=== PATIENT | female | born 2000 | race Caucasian/White ===

== ENCOUNTER 2018-03-01 13:51 | Emergency (ER) | payer OTHER ==
[2018-03-01] MEDS ORDERED: LIDOCAINE 4%/MENTHOL 1% PATCH TD ONE (15:29)
[2018-03-01] MEDS ORDERED: DIAZEPAM 5 MG TAB PO ONE (15:29)
--- NOTE | 2018-03-01 15:43 | EDPHY ---
H & P Time Seen by Provider: 03/01/18 15:05 HPI/ROS: CLINICAL IMPRESSION: Rhomboid strain ASSESSMENT/PLAN: 17-year-old female presents to the emergency department with 24 hr of reproducible bilateral pain to the thoracic region. No associated chest pain, shortness of breath, pleuritic discomfort, syncope, dizziness, lightheadedness or history of trauma. No midline cervical or thoracic vertebral pain. Pain is very reproducible to palpation of the rhomboid regions, left greater than right , worsened by range of motion. Strongly suspect musculoskeletal etiology. Patient received muscle relaxers and a Lidoderm patch. Note provided to inform school the patient was seen in the ED at time of visit. Warning signs for return to ED sooner outlined and discharge. DIFFERENTIAL DX: Differential includes but not limited to musculoskeletal strain, rib contusion CHIEF COMPLAINT: Back pain HPI: 17-year-old female presents to the emergency department with complaints of upper back pain since last night. Patient reports pain is worse with range of motion, massage, and deep breathing. She has no chest pain, shortness of breath , orthopnea, exercise intolerance, leg swelling. No personal or family history of DVT or PE. She does take estrogen based control. No recent travel or surgical history. She is otherwise healthy. She is a student at [employer] and states she has exam tonight at 6:00 p.m.. PMH: Noncontributory Pertinent Past Surgical History: None Family History: No family history of PE or DVT Social History: Nonsmoker see used to ROS: A full 10 point review of systems was negative except for those mentioned in HPI. PHYSICAL EXAM: General Appearance: Alert, oriented, appropriate, cooperative, NAD, well hydrated, non-toxic appearing, VSS, no hypoxia, no tachycardia. Neck: Supple, nontender, no lymphadenopathy, no midline pain, FROM, no meningismus. Respiratory: There are no retractions, lungs are clear to auscultation. Cardiac: Regular rate and rhythm, no murmurs or gallops. Skin: Warm, dry, no rashes, no nodules on palpation. Musculoskeletal: MDM: Patient was seen independently by established practice protocols. Secondary supervising physician at time of evaluation was Dr. Mendoza. Diagnosis: Rhomboid strain. New, requires workup Summary: See Assessment and Plan for summary of ED visit Clinical lab tests: Not obtained. Risk of comlications, morbidity, mortality: Presenting problem low Diagnostic procedures low Management Options low Patient Progress: Stable. Smoking Status: Never smoked Constitutional: Initial Vital Signs Temperature (C) 36.7 C 03/01/18 14:11 Heart Rate 59 L 03/01/18 14:11 Respiratory Rate 16 03/01/18 14:11 Blood Pressure 122/70 H 03/01/18 14:11 O2 Sat (%) 99 03/01/18 14:11 O2 Delivery Mode Room Air Allergies/Adverse Reactions: No Known Allergies Allergy (Unverified 03/01/18 14:11) Home Medications: Medication Instructions Recorded Bcp 03/01/18 Diazepam [Valium] 5 mg PO Q8PRN PRN #10 tab 03/01/18 MDM/Departure - MDM Medications Given: Discontinued Medications Diazepam (Valium) 5 mg PO EDNOW ONE Stop: 03/01/18 15:30 Last Admin: 03/01/18 15:34 Dose: 5 mg Miscellaneous Medication (Icy Hot Lidocaine/Menthol 4%/1% Patch) 1 patch TD EDNOW ONE Stop: 03/01/18 15:30 Last Admin: 03/01/18 15:34 Dose: 1 patch - Depart Disposition: Home, Routine, Self-Care Clinical Impression: Rhomboid muscle strain Qualifiers: Encounter type: initial encounter Qualified Code(s): S29.012A - Strain of muscle and tendon of back wall of thorax, initial encounter Condition: Good Instructions: Muscle Strain (ED) Additional Instructions: DISCHARGE INSTRUCTIONS FROM YOUR DOCTOR Thank you for visiting our emergency department today. Please keep in mind that discharge from the emergency department does not mean that there is nothing wrong - it simply means that we have not identified an emergency condition that requires further evaluation or treatment in the hospital. You should always plan to follow up with primary care for re-evaluation of your condition in the next 2-3 days. If you have been referred to a specialist, please call as soon as possible (today or tomorrow) to schedule your follow up appointment at the appropriate time. You appear to have a strain of the rhomboid muscles. You received a muscle relaxer and Lidoderm patch in the ED. Please remove this patch on 12 hr and remained patch free before applying a new patch. Patches can be obtained any local pharmacy and do not require prescription. A prescription for muscle relaxers was given to use if needed. Do not drive or drink while taking these. You received a note explaining to school that you were in the ED today. Return to the emergency department for worsening pain, chest pain, shortness of breath, leg swelling, fainting episodes, or any other concerns. People present with illnesses and injuries in different ways, and it is always possible that we have missed something. You may always return for re-evaluation if symptoms worsen or if they are not improving or if you develop new/different symptoms. Again, thank you for choosing our emergency department. We hope that you feel better. Stand Alone Forms: Statement of Treatment Prescriptions: Diazepam [Valium] 5 mg PO Q8PRN PRN #10 tab PRN Reason: Pain, Breakthrough Referrals: NONE *PRIMARY CARE P,. [Primary Care Provider] - As per Instructions [facility],. [Clinic] - As per Instructions
[2018-03-01 15:57] VITALS: BP 110/75
[2018-03-01] MEDS ORDERED: PATCH REMOVAL 1 EA PATCH TD SCH (21:00)
== END 2018-03-01 15:59 | disposition home or self-care (01) ==
DX: S29.012A Strain of muscle and tendon of back wall of thorax, initial encounter (principal); X58.XXXA Exposure to other specified factors, initial encounter; Y92.9 Unspecified place or not applicable; Y93.9 Activity, unspecified